=== PATIENT | female | born 1950 | race Caucasian/White ===

== ENCOUNTER 2021-12-03 18:11 | Emergency (ER) | payer MEDICARE, BC, SELFPAY ==
[2021-12-03 18:28] VITALS: BP 115/72; PULSE 84; RESP 20; TEMP 36.7; O2SAT 96; BMI 39.5
--- NOTE | 2021-12-03 18:45 | CRLHL7_ITS ---
For Patients: As a result of the Century Cures Act, medical imaging exams and procedure reports are released immediately into your electronic medical record. You may view this report before your referring provider. If you have questions, please contact your health care provider. INDICATION: Right leg swelling. Recent hip replacement. COMPARISON: None available. FINDINGS: Ultrasound of the venous drainage of the right lower extremity was performed using real-time alonzo scale imaging (B mode 2D), color flow Doppler and spectral analysis. There is no evidence of deep venous thrombosis. There is normal antegrade flow from the posterior tibial and peroneal veins superiorly through the common femoral vein. There is normal augmentation and compressibility of these veins. The right greater saphenous vein in the thigh is widely patent. The left common femoral vein is widely patent. IMPRESSION: No evidence of deep or superficial venous thrombosis on ultrasound examination of the right lower extremity. Dictated by Dani Le MD @ 12/03/2021 7:20:12 PM (Electronically Signed)
--- NOTE | 2021-12-03 18:47 | ED_ITS ---
HPI - General Adult General Time Seen by Provider: 18:35 Date Seen: 12/03/21 Chief complaint: Extremity Pain/Injury, Lower Stated complaint: Possible blood clot in right ankle Time Seen by Provider: 12/03/21 18:25 Source: patient Mode of arrival: ambulatory Limitations: no limitations History of Present Illness HPI narrative: Patient is a 71-year-old female that is coming to the ER with concern of a blood clot in her right leg. She states she had a right hip replacement about a month ago. She is still on 325 mg of aspirin daily. She has no prior history of bl ood clots. She initially had some swelling but resolved but about a week ago started having swelling in the right lower extremity again, particularly about her right ankle. The ankle feels stiff like she cannot bend due to the swelling. There is no calf pain, no respiratory symptoms such as cough, shortness of breath, difficulty breathing, no chest pain. Her physical therapist evaluated this and recommended that she have an ultrasound to rule out a blood clot. She is concerned this could be a blood clot. She denies any trauma to this leg, no prior history of significant swelling of this extremity. No fevers chills, no cough or cold symptoms, no respiratory symptoms. Onset (ago): day(s) Location: right and lower extremity Related Data Home Medications Medication Instructions Recorded Confirmed bupropion HCl 150 mg tablet,12 hr mg PO 12/03/21 sustained-release chlorthalidone 25 mg tablet mg 12/03/21 fluoxetine 20 mg capsule mg 12/03/21 nystatin 100,000 unit/gram topical TOPICAL 12/03/21 powder (Nystop) omeprazole 20 mg capsule,delayed mg 12/03/21 release simvastatin 10 mg tablet mg 12/03/21 Allergies Allergy/AdvReac Type Severity Reaction Status Date / Time bacitracin Allergy Verified 12/03/21 18:33 [From Neosporin ([id number])] lisinopril Allergy Cough Verified 12/03/21 18:33 neomycin Allergy Verified 12/03/21 18:33 [From Neosporin ([id number])] polymyxin B Allergy Verified 12/03/21 18:33 [From Neosporin ([id number])] lactose AdvReac Verified 12/03/21 18:33 Review of Systems Narrative: See HPI for limited review of systems. Exam Const: Vital Signs, click to edit/add: Vital Signs - 24 hr 12/03/21 18:28 Temperature 98.1 F Pulse Rate [Right Pulse Oximeter] 84 Respiratory Rate 20 Blood Pressure [Ri ght Upper Arm] 115/72 Pulse Oximetry 96 Documenting provider has reviewed patient's vital signs: yes Common normals: no apparent distress and oriented x3 General appearance: cooperative and comfortable HENMT: Common normals: normocephalic and hearing grossly normal bilaterally Head and scalp: normocephalic Face and sinus: normal facial exam Eye: Common normals: PERRL and EOMs intact bilaterally Pupil: PERRL Neck & C-Spine: Common normals: full ROM, no lymphadenopathy, supple, no JVD and thyroid normal Thyroid: thyroid normal Resp: Common normals: normal respiratory effort, no use of accessory muscles and clear to auscultation bilaterally Auscultation: clear to auscultation bilaterally Cardio: Common normals: no JVD, regular rate, regular rhythm, S1 normal heart sound, S2 normal heart sound, no gallops, no clicks and no murmurs Rate: regular rate Rhythm: regular rhythm Heart sounds: S1 normal and S2 normal GI: Common normals: Normal to inspection, nondistended, normoactive bowel sounds present Extremity: Other: Has about 2+ pretibial edema up mid leg on the right lower extremity, definite edema about her ankle and into the foot. Has normal sensation, normal workup and coloration to this extremity. There is no erythema, no evidence of any cellulitis. Her left lower extremity has no edema. Neuro: Common normals: oriented x3 Course Course Hospital Course: Reviewed with patient that we certainly can obtain a right lower extremity ultrasound. In this situation I feel it prudent to just truly ultrasound her and not to go based on a D-dimer. She is had recent hip surgery which does make her higher risk for possibility of DVT. She is hemodynamically stable, no chest symptomatology to suggest anything such as a concomitant pulmonary embolus. If the ultrasound is negative for DVT, she understands then this is most likely just postoperative edema that can happen postsurgically. Some patients can have edema intermittently for weeks to months, some even years. Vital Signs Vital signs: Initial Vital Signs Temperature 98.1 F 12/03/21 18:28 Temperature Source Temporal Artery Scan 12/03/21 18:28 Pulse Rate 84 12/03/21 18:28 Pulse Rhythm 12/03/21 18:28 Respiratory Rate 20 12/03/21 18:28 Blood Pressure 115/72 12/03/21 18:28 Blood Pressure Mean 86 12/03/21 18:28 Pulse Oximetry 96 12/03/21 18:28 Oxygen Delivery Method 12/03/21 18:28 Vital Signs Temperature 98.1 F 12/03/21 18:28 Pulse Rate 84 12/03/21 18:28 Respiratory Rate 20 12/03/21 18:28 Blood Pressure 115/72 12/03/21 18:28 Pulse Oximetry 96 12/03/21 18:28 Temperature 98.1 F 12/03/21 18:28 Pulse Rate 84 12/03/21 18:28 Respiratory Rate 20 12/03/21 18:28 Blood Pressure 115/72 12/03/21 18:28 Pulse Oximetry 96 12/03/21 18:28 Medical Decision Making Imaging Data Venous US: Attestation: I have reviewed the pertinent imaging results. Radiologist's impression: Patient: QUIQUE GIRARD Facility:?[facility] Patient ID:?[id number] Site Patient [id number]:?[id number]. Site :?[id number] Study:?US Extremity Right -12/03/2021 7:11:14 PM Ordering Physician:Zana Shane Final Report: INDICATION: Right leg swelling. Recent hip replacement. COMPARISON: None available. FINDINGS: Ultrasound of the venous drainage of the right lower extremity was performed using real-time alonzo scale imaging (B mode 2D), color flow Doppler and spectral analysis. There is no evidence of deep venous thrombosis. There is normal antegrade flow from the posterior tibial and peroneal veins superiorly through the common femoral vein. There is normal augmentation and compressibility of these veins. The right greater saphenous vein in the thigh is widely patent. The left common femoral vein is widely patent. IMPRESSION: No evidence of deep or superficial venous thrombosis on ultrasound examination of the right lower extremity. Dictated by Dani Le MD @ 12/03/2021 7:20:12 PM (Electronic Signature) Critical Care Time Critical Care Time Critical Care Time: No Discharge Plan Discharge Clinical Impression: Swelling of right lower extremity Patient Disposition: Home, Self-Care Condition: Stable Instructions: Leg Edema (ED) Additional Instructions: This is likely postoperative edema of her right lower extremity. The ultrasound did not show any clots, no DVT. I do recommend elevating your extremity when resting, using your compression stockings during the day when your up in ambulatory, they can come off at night. Your physical therapist may be able to help with some modalities with swelling as well. Prescriptions: No Action bupropion HCl 150 mg tablet sustained-release 12 hr PO 0RF simvastatin 10 mg tablet 0RF chlorthalidone 25 mg tablet 0RF omeprazole 20 mg capsule,delayed release(DR/EC) 0RF nystatin [Nystop] 100,000 unit/gram powder TOPICAL 0RF fluoxetine 20 mg capsule 0RF Stand Alone Forms: [facility] Info Instructions
== END 2021-12-03 20:06 | disposition home or self-care (01) ==
PROVIDERS: Emergency Provider Family Medicine; PCP Family Medicine
DX: R22.41 Localized swelling, mass and lump, right lower limb (principal)
CPT/HCPCS: 93971; 99283

== ENCOUNTER 2023-04-27 11:05 | Day surgery (SDC) | payer MEDICARE, BC, SELFPAY ==
[2023-04-27] MEDS: TETRACAINE 0.5% OPHTH 1 DROP EYE-LEFT (11:20)
[2023-04-27 11:27] VITALS: BMI 39.2
[2023-04-27] MEDS: KETOROLAC OPHTH 0.5% 1 DROP EYE-LEFT ×3 (11:30→11:40)
[2023-04-27] MEDS: SODIUM CHLORIDE 0.9 % (FLUSH) 10 ML SYRINGE IVF (11:45)
[2023-04-27 11:54] VITALS: BP 139/78; PULSE 94; RESP 16; TEMP 36.2; O2SAT 94
--- NOTE | 2023-04-27 12:51 | W.ANESCHARGE ---
Anesthesia Charges Start Date/Time Anesthesia Start Date: 04/27/23 Anesthesia Start Time: 12:46 Stop Date/Time Anesthesia Stop Date: 04/27/23 Anesthesia Stop Time: 13:15 Summary Extremes of Age - Over 70 or under 1: REHABILITATION SERVICES COORDINATOR
[2023-04-27] MEDS: TETRACAINE 0.5% OPHTH 2 DROP EYE-LEFT (12:52)
[2023-04-27] MEDS: BALANCED SALT IRRIG SOLN 15 ML EYE-LEFT (12:56)
[2023-04-27] MEDS: BRIMONIDINE TARTRATE 0.2% OPHTH 1 DROP EYE-LEFT (13:00)
--- NOTE | 2023-04-27 13:14 | P.PCN_ITS ---
Procedure Note Date Seen: 04/27/23 Date of procedure: 04/27/23 Will [facility] bill your pro fee for this procedure?: No Pre-op diagnosis: combined form of cataract left eye Post-op diagnosis: other Procedure Description: NAME OF PROCEDURE Robert phacoemulsification, left eye, with posterior chamber lens implant. PREOPERATIVE DIAGNOSIS Nuclear sclerotic cortical combined cataract, left eye. POSTOPERATIVE DIAGNOSIS Nuclear sclerotic cortical combined cataract, left eye. INDICATIONS FOR PROCEDURE The patient has noted that his vision in the left eye is failing. Severity Seven/10. Unable to correct with glasses/contact lenses; has disabling night glare when driving, difficulty reading. Because of this, the patient elected to proceed with surgical repair. I have explained the risks, benefits, alternative treatments to the patient including possible loss of the eye under correction, over correction, need for more surgery. The patient understands, accepts, and elects to proceed with surgical repair. PROCEDURE The left eye was dilated with a combination 1% Mydriacyl, 2.5% phenylephrine with topical Ocufen and Vigamox applied to the corneal surface. The patient was brought to the main operating room where under IV sedation, after pausing to identify the correct patient, correct intraoperative lens, power 20.5 diopters, the left eye was prepped and draped in usual sterile fashion for intraocular surgery. A lid speculum was placed and a paracentesis created at 6 o'clock. The chamber was filled with OVD and entered temporally with a keratome. A continuous tear capsulotomy was performed. The nucleus was hydrodissected and emulsified with local anesthetic and emulsified in a chop technique in the capsular bag. Residual cortex was cleaned. The capsule was clear. At this point, ZCBOO 20.5 diopter posterior chamber lens implant was injected into the capsular bag and was well centered. Residual OVD was cleaned from behind the implant from the capsular bag. The incision hydrated and noted to be leak free. Topical Alphagan, pilocarpine, and Vigamox were applied to the corneal surface and the patient returned to recovery in good condition having tolerated the procedure well. CONDITION ON DISCHARGE Satisfactory.
[2023-04-27 13:15] VITALS: BP 129/70; PULSE 76; RESP 16; TEMP 36.1; O2SAT 96
--- NOTE | 2023-04-27 14:31 | W.ANESCHARGE ---
Anesthesia Charges Start Date/Time Anesthesia Start Date: 04/27/23 Anesthesia Start Time: 12:46 Stop Date/Time Anesthesia Stop Date: 04/27/23 Anesthesia Stop Time: 13:15 Summary Extremes of Age - Over 70 or under 1: MDA
== END 2023-04-27 13:46 | disposition home or self-care (01) ==
PROVIDERS: PCP Family Medicine; Visit Provider Ophthalmology
PROC: (CPT 66984; principal; 2023-04-27 12:30)
DX: H25.812 Combined forms of age-related cataract, left eye (principal)
CPT/HCPCS: 66984; 142; 99100; A9270; J2250; J3010; S0020; V2632